=== PATIENT | female | born 2005 | race Two or more races ===

== ENCOUNTER 2024-10-10 01:30 | Emergency (ER) | payer OTHER ==
[~2024-10-10] VITALS: Ht 162.6 cm; Wt 80.5 kg
[2024-10-10 01:37] VITALS: TEMP 98.2
[2024-10-10] MEDS ORDERED: LEVO1TAB93 PO (01:42)
[2024-10-10] MEDS ORDERED: ACET1TAB82 PO (01:42)
[2024-10-10 02:21] LABS: HEMOGLOBIN 15.1 g/dL (12.0-16.0); LYMPHOCYTES # (AUTO) 3.9 K/uL (1.0-4.8); NEUTROPHILS # (AUTO) 2.9 K/uL (1.8-7.7); WHITE BLOOD COUNT (AUTO) 8.2 K/uL (4.5-11.0)
[2024-10-10 02:25] LABS: ANION GAP 11 mmol/L (8-16); CALCIUM, TOTAL 8.8 mg/dL (8.8-10.5); CARBON DIOXIDE 25 mmol/L (22-29); CHLORIDE 103 mmol/L (98-107); CREATININE 0.75 mg/dL (0.60-1.30); GLOMERULAR FILTR. RATE CALC > 60 mL/min (>60); GLUCOSE,RANDOM 109 mg/dL (70-110); POTASSIUM 3.8 mmol/L (3.5-5.1); SODIUM SERUM 139 mmol/L (136-145); UREA NITROGEN, BLOOD 8 mg/dL (7-18)
[2024-10-10 02:27] VITALS: BP 146/88; PULSE 78; RESP 20; O2SAT 100
[2024-10-10 02:29] LABS: BASOPHILS % (AUTO) 1.3 % (0.0-2.0); EOSINOPHILS % (AUTO) 8.6 % (1.0-6.0); HEMATOCRIT 42.4 % (36-46); LYMPHOCYTES % (AUTO) 47.8 % (22.0-44.0); MEAN CORPUSCULAR HGB CONC 35.5 G/dL (31.0-37.0); MEAN CORPUSCULAR VOLUME 87 fL (80-100); MONOCYTES # (AUTO) 0.6 K/uL (0.1-1.0); MONOCYTES % (AUTO) 6.9 % (2.0-9.0); NEUTROPHILS % (AUTO) 35.4 % (40.0-70.0); PLATELET COUNT (AUTO) 402 K/uL (150-450); RED BLOOD CELL COUNT(AUTO) 4.86 MIL/uL (4.00-5.20); RED CELL DISTRIBUTION WIDTH 13.9 % (11.5-14.5)
[2024-10-10 02:43] LABS: HCG,QUANTITATIVE < 1 mIU/mL (0-6)
[2024-10-10] MEDS: IBUPROFEN 800 MG TABLET PO ONE (03:08)
== END 2024-10-10 03:41 | disposition home or self-care (01) ==
LOC: EMS 01:30
DX: N92.0 Excessive and frequent menstruation with regular cycle (principal); J45.909 Unspecified asthma, uncomplicated; Z98.890 Other specified postprocedural states; Z32.02 Encounter for pregnancy test, result negative; Z79.3 Long term (current) use of hormonal contraceptives
CPT/HCPCS: 80048; 84702; 85025; 99283